=== PATIENT | male | born 1990 | race Caucasian/White ===

== ENCOUNTER 2017-12-28 15:35 | Outpatient (CLI) | payer OTHER ==
[2017-12-28 15:45] LABS: BASOPHILS % 0.7 (0.0-1.5); EOSINOPHILS % 1.8 % (0.0-6.8); MEAN CORPUSCULAR HEMOGLOBIN 29.8 pg (28.0-34.0); MEAN CORPUSCULAR VOLUME 89.7 fl (80.0-100.0); MONOCYTES % 8.1 % (0.0-11.0); NEUTROPHILS # 6.2 # k/uL (1.4-7.7)
[2017-12-28 16:09] LABS: eGFR (African) > 60; eGFR (Non-African) > 60
== END 2017-12-28 15:36 ==
LOC: LAB 15:35
PROVIDERS: ATTEND General Practice
DX: L03.90 Cellulitis, unspecified (principal)
CPT/HCPCS: 80053; 85025